=== PATIENT | male | born 1990 | race Two or more races ===

== ENCOUNTER 2022-03-12 18:24 | Emergency (ER) | payer OTHER ==
[~2022-03-12] VITALS: Ht 195.6 cm; Wt 113.4 kg
== END 2022-03-12 19:09 | disposition home or self-care (01) ==
LOC: ER 18:24
DX: H53.8 Other visual disturbances (principal)

== ENCOUNTER 2022-03-31 18:32 | Emergency (ER) | payer OTHER ==
[~2022-03-31] VITALS: Ht 195.6 cm; Wt 113.4 kg
== END 2022-03-31 23:15 | disposition home or self-care (01) ==
LOC: ER 18:32
DX: R42 Dizziness and giddiness (principal)